=== PATIENT | male | born 1975 | race Hispanic/Latino ===

== ENCOUNTER 2022-08-04 13:50 | Emergency (ER) | payer SELFPAY ==
--- OUTSIDE RECORDS SUMMARY | 2022-08-04 13:56 | XMS REPORT | Continuity of Care Document ---
:1975 Author Organization [facility] t Address [address] [place] [address] Care Team Providers Name Role Phone PCP, PATIENT DOES NOT HAVE A Primary Care Physician Unavailgopi Ontiveros MD, Aliza Page Attending Clinician [phone] ALIZA ONTIVEROS Attending Clinician Unavailable ALIZA ONTIVEROS Admitting Clinician Unavailable Payers Payer Name Policy Type Policy Number Effective Date Expiration Date S ource Problems Condition Condition Condition Status Onset Resolution Last Treating Co mments Source Name Details Category Date Date Treatment Clinician Date No known No known Disease Unive rs active active ity of problems problems [facility] Allergies, Adverse Reactions, Alerts Allergy Allergy Status Severity Reaction(s) Onset Inactive Treating Comm ents Source Name Type Date Date Clinician NO KNOWN Drug Active Univers ALLERGIE Class ity of [facility] [place] [facility] [place] Social History Social Habit Start Date Stop Date Quantity Comments Source Exposure to 2022-05-13 2022-05-23 Not sure [facility] SARS-CoV-2 (event) 00:00:00 09:08:00 Medica l Branch Sex Ass[birth year] [facility] 00:00:00 00:00:00 Medical Branch Smoking Status Start Date Stop Date Source Tobacco smoking consumption Univ [facility] Medical unknown Branch Medications Ordered Filled Start Stop Current Ordering Indication Dosage Frequency Signature Comments Components Source Medication Medication Date Date Medication? Clinician (SIG) Name Name iopamidol 2021-07- No [id number] 100mL 100 mL, Univers (ISOVUE -23 05- Intravenou ity o f 370-500 mL) 16:00: 16:15 s, ONCE, 1 [place] injection 00 :00 dose, On Medica l 100 mL Sat Branch 05/23/22 at 1015, Routine predniSONE 2021-07- Yes [id number] 60mg Take 3 Univers 20 mg 07-23- tablets by ity of tablet 00:00: 05:59 mouth [place] 00 :00 daily for Medical 7 days. Branch valACYclovi 2021-07- Yes [id number] 1g Take 1 Univers r 1 gram 07-23- tablet by ity o f tablet 00:00: 05:59 mouth 3 [place] 00 :00 (three) Medical times Branch daily for 7 days. artificial 2021-07- Yes [id number] 1[drp] Place 1 Univers tears,hypro 07-23 Drop in ity of [place], 00:00: 05:59 [place] 0.5 % 00 :00 every 6 Medical ophthalmic (six) Branch drops hours for 5 days. ONE TABLET 2021-07 No 8 ORALLY Q 8 0-12 HOURS PRN 00:00: 00 glimepiride 2020-0 No 1mg 4 mg tablet 6-28 00:00: 00 glimepiride 2020-0 No 1mg 4 mg tablet 5-17 00:00: 00 Dose 2020-0 No Unknown 5-17 00:00: 00 metformin 2020-0 No 1mg 500 mg 4-28 tablet 00:00: 00 lisinopril 2020-0 No 1mg 20 4-21 mg-hydrochl 00:00: orothiazide 00 25 mg tablet lisinopril 0 No 1mg 20 4-21 mg-hydrochl 00:00: orothiazide 00 25 mg tablet lisinopril No 1mg 20 9-20 mg-hydrochl 00:00: orothiazide 00 25 mg tablet lisinopril No 1mg 20 9-20 mg-hydrochl 00:00: orothiazide 00 25 mg tablet Bactrim DS No 1mg 800 mg-160 5-19 mg tablet 00:00: 00 lisinopril 2017-0 No 1mg 20 5-19 mg-hydrochl 00:00: orothiazide 00 25 mg tablet furosemide No 1mg 20 mg 5-19 tablet 00:00: 00 lisinopril No 1mg 20 5-17 mg-hydrochl 00:00: orothiazide 00 25 mg tablet Elimite 5 % No 1% topical 1-11 cream 00:00: 00 lisinopril No 1mg 20 1-11 mg-hydrochl 00:00: orothiazide 00 25 mg tablet lisinopril No 1mg 20 1-04 mg-hydrochl 00:00: orothiazide 00 25 mg tablet lisinopril 2015-07 No 1mg 20 0-05 mg-hydrochl 00:00: orothiazide 00 25 mg tablet lisinopril- Yes 1{tbl} Take 1 Un adrian hydrochloro 5-13 tablet by ity of thiazide 22:25: mouth [place] (Vinicio ROACH 12 daily. Medica l ESTORETIC) Alexandre 20-25 mg per tablet Immunizations Ordered Filled Immunization Date Status Comments [facility] e Immunization Name Name Julián COVID-19 2020-12-09 Completed Vaccine 00:00:00 Moderna COVID-19 2020-10-30 Completed Vaccine 00:00:00 Td 2015-11-15 Completed [facility] 00:00:00 [facility] Vital Signs Vital Name Observation Time Observation Value Comments Source Systolic blood 2022-05-23 186 mm[Hg] ERP notified. Pt Universit y of pressure 17:00:00 instructed to [facility] BP meds Branch upon arrival home. Diastolic blood 2022-05-23 96 mm[Hg] ERP notified. Pt Universi ty of pressure 17:00:00 instructed to [facility] BP meds Branch upon arrival home. Heart rate 2022-05-23 66 /min [facility] 16:30:00 [facility] Respiratory rate 2022-05-23 14 /min [facility] 16:30:00 [facility] Oxygen saturation 2022-05-23 100 /min [facility] in Arterial blood 16:30:00 [facility] by Pulse oximetry Branch Body temperature 2022-05-23 36.78 Cat [facility] 15:09:00 [facility] Body weight 2022-05-23 113.399 kg [facility] 15:09:00 [facility] BMI 2022-05-23 268.39 kg/m2 [facility] 15:09:00 [facility] BP Systolic 2022-04-15 161 mm[Hg] 13:16:00 BP Diastolic 2022-04-15 99 mm[Hg] 13:16:00 Weight Measured 2022-04-15 268.20 pounds 13:16:00 Height Measured 2022-04-15 65.00 inches 13:16:00 Body Temperature 2022-04-15 97.80 degrees 13:16:00 Heart Rate 2022-04-15 78.00 /min 13:16:00 Respiratory Rate 2022-04-15 24.00 /min 13:16:00 BP Systolic 2020-12-30 123 mm[Hg] 11:13:00 BP Diastolic 2020-12-30 69 mm[Hg] 11:13:00 Weight Measured 2020-12-30 263.67 pounds 11:13:00 Height Measured 2020-12-30 65.00 inches 11:13:00 Body Temperature 2020-12-30 98.40 degrees 11:13:00 Heart Rate 2020-12-30 63.00 /min 11:13:00 Respiratory Rate 2020-12-30 11:13:00 BP Systolic 2020-12-27 131 mm[Hg] 14:01:00 BP Diastolic 2020-12-27 75 mm[Hg] 14:01:00 Weight Measured 2020-12-27 266.40 pounds 14:01:00 Height Measured 2020-12-27 65.00 inches 14:01:00 Body Temperature 2020-12-27 98.20 degrees 14:01:00 Heart Rate 2020-12-27 58.00 /min 14:01:00 Respiratory Rate 2020-12-27 23.00 /min 14:01:00 BP Systolic 2020-11-18 121 mm[Hg] 08:41:00 BP Diastolic 2020-11-18 72 mm[Hg] 08:41:00 Weight Measured 2020-11-18 262.60 pounds 08:41:00 Height Measured 2020-11-18 65.00 inches 08:41:00 Body Temperature 2020-11-18 97.90 degrees 08:41:00 Heart Rate 2020-11-18 97.00 /min 08:41:00 Respiratory Rate 2020-11-18 08:41:00 BP Systolic 2020-10-30 139 mm[Hg] 08:38:00 BP Diastolic 2020-10-30 76 mm[Hg] 08:38:00 Weight Measured 2020-10-30 266.20 pounds 08:38:00 Height Measured 2020-10-30 65.00 inches 08:38:00 Body Temperature 2020-10-30 98.10 degrees 08:38:00 Heart Rate 2020-10-30 59.00 /min 08:38:00 Respiratory Rate 2020-10-30 17.00 /min 08:38:00 BP Systolic 2020-10-23 180 mm[Hg] 17:00:00 BP Diastolic 2020-10-23 99 mm[Hg] 17:00:00 Weight Measured 2020-10-23 265.00 pounds 17:00:00 Height Measured 2020-10-23 65.00 inches 17:00:00 Body Temperature 2020-10-23 98.80 degrees 17:00:00 Heart Rate 2020-10-23 69.00 /min 17:00:00 Respiratory Rate 2020-10-23 16.00 /min 17:00:00 BP Systolic 2018-07-22 119 mm[Hg] 09:48:00 BP Diastolic 2018-07-22 81 mm[Hg] 09:48:00 Weight Measured 2018-07-22 245.60 pounds 09:48:00 Height Measured 2018-07-22 65.00 inches 09:48:00 Body Temperature 2018-07-22 97.90 degrees 09:48:00 Heart Rate 2018-07-22 63.00 /min 09:48:00 Respiratory Rate 2018-07-22 18.00 /min 09:48:00 BP Systolic 2017-03-24 156 mm[Hg] 11:03:00 BP Diastolic 2017-03-24 94 mm[Hg] 11:03:00 Weight Measured 2017-03-24 249.40 pounds 11:03:00 Height Measured 2017-03-24 65.00 inches 11:03:00 Body Temperature 2017-03-24 98.70 degrees 11:03:00 Heart Rate 2017-03-24 59.00 /min 11:03:00 Respiratory Rate 2017-03-24 16.00 /min 11:03:00 BP Systolic 2016-11-20 127 mm[Hg] 09:37:00 BP Diastolic 2016-11-20 83 mm[Hg] 09:37:00 Weight Measured 2016-11-20 276.40 pounds 09:37:00 Height Measured 2016-11-20 60.00 inches 09:37:00 Body Temperature 2016-11-20 99.40 degrees 09:37:00 Heart Rate 2016-11-20 80.00 /min 09:37:00 Respiratory Rate 2016-11-20 18.00 /min 09:37:00 BP Systolic 2016-07-15 121 mm[Hg] 10:00:00 BP Diastolic 2016-07-15 84 mm[Hg] 10:00:00 Weight Measured 2016-07-15 272.60 pounds 10:00:00 Height Measured 2016-07-15 10:00:00 Body Temperature 2016-07-15 98.00 degrees 10:00:00 Heart Rate 2016-07-15 58.00 /min 10:00:00 Respiratory Rate 2016-07-15 18.00 /min 10:00:00 Procedures Procedure Date / Time Performed Performing Clinician [facility] e CT ANGIOGRAM HEAD 2022-05-23 16:01:40 [facility] CT ANGIOGRAM NECK 2022-05-23 16:01:40 [facility]on [facility] CT HEAD WO CONTRAST 2022-05-23 15:51:00 Aliza Ontiveros [facility] COMP. METABOLIC PANEL 2022-05-23 15:20:00 Aliza Ontiveros [facility] ([id number]) [facility] CBC WITH DIFF 2022-05-23 15:20:00 Aliza Ontiveros [facility] NOTICE OF PRIVACY 2022-05-23 15:00:19 Doctor Unassigned, No Univ [facility] PRACTICES Name [facility] CONSENT/REFUSAL FOR 2022-05-23 14:59:37 Doctor Unassigned, No [facility] DIAGNOSIS AND Name Medical Branch TREATMENT [id number] Ecg Routine Ecg 2016-04-08 00:00:00 W/least 12 Lds W/i r Plan of Care Planned Activity Planned Date Details Comments Source Goal Plan of Care Note [code = 79605-3] Goal Plan of Care Note [code = 96909-3] Goal Plan of Care Note [code = 77973-0] Goal Plan of Care Note [code = 71563-6] Goal Plan of Care Note [code = 26331-3] Goal Plan of Care Note [code = 90223-2] Goal Plan of Care Note [code = 28527-9] Goal Plan of Care Note [code = 93900-5] Goal Plan of Care Note [code = 77635-2] Goal Plan of Care Note [code = 69029-6] Goal Plan of Care Note [code = 75251-3] Goal Plan of Care Note [code = 50504-6] Goal Plan of Care Note [code = 53603-3] Goal Plan of Care Note [code = 90586-3] Goal Plan of Care Note [code = 48058-7] Goal Plan of Care Note [code = 00658-3] Goal Plan of Care Note [code = 04079-4] Goal Plan of Care Note [code = 38897-0] Goal Plan of Care Note [code = 94095-3] Goal Plan of Care Note [code = 81773-2] Goal Plan of Care Note [code = 15520-6] Goal Plan of Care Note [code = 05223-0] Goal Plan of Care Note [code = 52245-5] Encounters Start End Encounter Admission Attending Care Care Encounter Source Date/Time Date/Time Type Type Clinicians Facility Department ID 2022-05-25 2022-05-25 Outpatient [facility] [id number] Deangelo 14:05:51 14:05:51 112[address] Neel 2022-05-23 2022-05-23 Emergency [facility] [id number] Univers 09:11:00 11:09:00 , Aliza ESPINAL [id number] i ty of Kaylee TOMPKINS [id number] [facility] [id number] [facility] 084 Branch 2022-05-23 2022-05-23 Emergency [facility] [id number] Univers 09:11:00 11:09:00 , ALIZA red [facility] 2022-04-15 2022-04-15 Outpatient SFA [facility] [id number] 022 Deangelo 13:16:50 13:16:50 1012 F Neel 2022-04-15 2022-04-15 Outpatient [id number] 00:00:00 00:00:00 Visit [id number] Results Test Description Test Time Test Comments Results Result Comments Source COMP. METABOLIC PANEL (85685) 2022-05-23 15:49:01 Test Item Value Reference Range Interpretation Comme nts NA (test code = 2422912260) 136 mmol/L 135-145 K (test code = 4908085310) 4.3 mmol/L 3.5-5.0 CL (test code = 1166649504) 101 mmol/L 98-108 CO2 TOTAL (test code = 0620605935) 26 mmol/L 23-31 AGAP (test code = 1253553483) 2-16 BUN (test code = 9597551183) 15 mg/dL 7-23 GLUCOSE (test code = 8966522416) 180 mg/dL 70-110 H CREATININE (test code = 1.05 mg/dL 0.60-1.25 0983827860) TOTAL BILI (test code = 0.9 mg/dL 0.1-1.0 9937390088) CALCIUM (test code = 6158943269) 9.7 mg/dL 8.6-10.6 T PROTEIN (test code = 6889496380) 7.6 g/dL 6.3-8.2 ALBUMIN (test code = 2360011539) 4.7 g/dL 3.5-5.0 ALK PHOS (test code = 1966048091) 79 U/L 34-122 ALTv (test code = 1742-6) 55 U/L 5-50 H AST(SGOT) (test code = 4182475549) 42 U/L 13-40 H eGFR (test code = 9889075785) mL/min/1.73m2 JONI (test code = JNOI) Association of Glomerular Filtration Rate (GFR) and Staging of Kidney Disease* + +-------- + ------+| GFR (mL/min/1.73 m2) ?| With Kidney Damage ?| ?Without Kidney Damage+ +-- + +| ?>90 ?| ?Stage one ?| ? Normal ?+ +------- + -------+| ?60-89 ?| ?Stage two ?| ? Decreased GFR ? + +-------- + ------+| ?30-59 ?| ?Stage three ?| ? Stage three ? + +-------- + ------+| ?15-29 ?| ?Stage four ? | ? Stage four ?+ +------- + -------+| ?<15 (or dialysis) ? ?| ?Stage five ? | ? Stage five ?+ +------- + -------+ *Each stage assumes the associated GFR level has been in effect for at least three months. ?Stages 1 to 5, with or without kidney disease, indicate chronic kidney disease. Notes: Determination of stages one and two (with eGFR >59mL/min/1.73 m2) requires estimation of kidney damage for at least three months as defined by structural or functional abnormalities of the kidney, manifested by either:Pathological abnormalities or Markers of kidney damage (including abnormalities in the composition of the blood or urine or abnormalities in imaging tests). Lab Interpretation (test code = Abnormal 33439-7) [facility] WITH [id number] 15:33:04 Test Item Value Reference Range Interpretation Comments WBC (test code = See_Comment [Automated 9065-2) message] The sy stem which generated this result transmitted reference range : 4.20 - 10.70 10*3/?L. The reference range was not used to interpret this result as normal/abnormal . RBC (test code = See_Comment [Automated 695-8) message] The sy stem which generated this result transmitted reference range : 4.26 - 5.52 10*6/?L. The reference range was not used to interpret this result as normal/abnormal . HGB (test code = 16.4 g/dL 12.2-16.4 718-7) HCT (test code = 46.2 % 38.4-49.3 4544-3) MCV (test code = 85.9 fL 81.7-95.6 787-2) MCH (test code = 30.5 pg 26.1-32.7 785-6) MCHC (test code = 35.5 g/dL 31.2-35.0 H 786-4) RDW-SD (test code = 40.4 fL 38.5-51.6 04304-4) RDW-CV (test code = 13.2 % 12.1-15.4 788-0) PLT (test code = See_Comment [Automated 777-3) message] The sy stem which generated this result transmitted reference range : 150 - 328 10*3/ ?L. The reference r ave was not used to interpret this result as normal/abnormal . MPV (test code = 11.2 fL 9.8-13.0 33600-3) NRBC/100 WBC (test See_Comment [Automat ed code = 3053815617) message] The system which generated this result transmitted reference range : 0.0 - 10.0 /100 WBCs. The refer ence range was not u sed to interpret th is result as normal/abnormal . NRBC x10^3 (test code See_Comment [Auto mated = 6574021227) message] The s ystem which generated this result transmitted reference range : 10*3/?L. The reference range was not used to interpret this result as normal/abnormal . GRAN MAT (NEUT) % 62.5 % (test code = 770-8) IMM GRAN % (test code 0.50 % = 7021172721) LYMPH % (test code = 23.8 % 736-9) MONO % (test code = 7.6 % 5905-5) EOS % (test code = 4.9 % 713-8) BASO % (test code = 0.7 % 706-2) GRAN MAT x10^3(ANC) 6.05 10*3/uL 1.99-6.95 (test code = 9481498594) IMM GRAN x10^3 (test 0.05 10*3/uL 0.00-0.06 code = 4028986679) LYMPH x10^3 (test code 2.30 10*3/uL 1.09-3.23 = 731-0) MONO x10^3 (test code 0.74 10*3/uL 0.36-1.02 = 742-7) EOS x10^3 (test code = 0.47 10*3/uL 0.06-0.53 711-2) BASO x10^3 (test code 0.07 10*3/uL 0.01-0.09 = 704-7) Lab Interpretation Abnormal (test code = 25327-2) [facility] [id number] 00:00:00 Test Item Value Reference Range Interpretation Comments HEMOGLOBIN A1c (test code = 01614) 7.0 % HEMOGLOBIN [id number] 00:00:00 Test Item Value Reference Range Interpretation Comments HEMOGLOBIN A1c (test code = 33984) 7.0 % HEMOGLOBIN [id number] 00:00:00 Test Item Value Reference Range Interpretation Comments HEMOGLOBIN A1c (test code = 25646) 7.0 % COMPREHENSIVE METABOLIC [id number] 00:00:00 Test Item Value Reference Range Interpretation Comments GLUCOSE (test code = 2217) 268 MG/DL BUN (test code = 2208) 27 MG/DL CREATININE (test code = 2214) 1.23 MG/DL eGFR AMER. (test code 82 ML/MIN/1.73 = 20471) eGFR NON- AMER. (test 71 ML/MIN/1.73 code = 10934) CALC BUN/CREAT (test code = 22 RATIO 2235) SODIUM (test code = 2231) 142 MEQ/L POTASSIUM (test code = 2228) 4.6 MEQ/L CHLORIDE (test code = 2215) 102 MEQ/L CARBON DIOXIDE (test code = 26 MEQ/L 2205) CALCIUM (test code = 2209) 9.8 MG/DL PROTEIN, TOTAL (test code = 7.3 G/DL 2228) ALBUMIN (test code = 2201) 4.4 G/DL CALC GLOBULIN (test code = 2.9 G/DL 0) CALC A/G RATIO (test code = 1.5 RATIO 2234) BILIRUBIN, TOTAL (test code = 0.6 MG/DL 2206) ALKALINE PHOSPHATASE (test 78 U/L code = 2204) AST (test code = 2218) 36 U/L ALT (test code = 2219) 45 U/L COMPREHENSIVE METABOLIC [id number] 00:00:00 Test Item Value Reference Range Interpretation Comments GLUCOSE (test code = 2217) 268 MG/DL BUN (test code = 2208) 27 MG/DL CREATININE (test code = 2214) 1.23 MG/DL eGFR AMER. (test code 82 ML/MIN/1.73 = 56553) eGFR NON- AMER. (test 71 ML/MIN/1.73 code = 21693) CALC BUN/CREAT (test code = 22 RATIO 2235) SODIUM (test code = 2231) 142 MEQ/L POTASSIUM (test code = 2228) 4.6 MEQ/L CHLORIDE (test code = 2215) 102 MEQ/L CARBON DIOXIDE (test code = 26 MEQ/L 2205) CALCIUM (test code = 2209) 9.8 MG/DL PROTEIN, TOTAL (test code = 7.3 G/DL 2228) ALBUMIN (test code = 2201) 4.4 G/DL CALC GLOBULIN (test code = 2.9 G/DL 224) CALC A/G RATIO (test code = 1.5 RATIO 2233) BILIRUBIN, TOTAL (test code = 0.6 MG/DL 2206) ALKALINE PHOSPHATASE (test 78 U/L code = 2204) AST (test code = 2218) 36 U/L ALT (test code = 2219) 45 U/L COMPREHENSIVE METABOLIC [id number] 00:00:00 Test Item Value Reference Range Interpretation Comments GLUCOSE (test code = 2217) 208 MG/DL BUN (test code = 2208) 24 MG/DL CREATININE (test code = 2214) 1.13 MG/DL eGFR AMER. (test code 91 ML/MIN/1.73 = 24810) eGFR NON- AMER. (test 79 ML/MIN/1.73 code = 91157) CALC BUN/CREAT (test code = 21 RATIO 2235) SODIUM (test code = 2231) 137 MEQ/L POTASSIUM (test code = 2228) 4.1 MEQ/L CHLORIDE (test code = 2215) 101 MEQ/L CARBON DIOXIDE (test code = 23 MEQ/L 220) CALCIUM (test code = 2209) 9.7 MG/DL PROTEIN, TOTAL (test code = 7.2 G/DL 2228) ALBUMIN (test code = 2201) 4.3 G/DL CALC GLOBULIN (test code = 2.9 G/DL 2240) CALC A/G RATIO (test code = 1.5 RATIO 2234) BILIRUBIN, TOTAL (test code = 0.6 MG/DL 220) ALKALINE PHOSPHATASE (test 83 U/L code = 2204) AST (test code = 2218) 29 U/L ALT (test code = 2219) 44 U/L COMPREHENSIVE METABOLIC [id number] 00:00:00 Test Item Value Reference Range Interpretation Comments GLUCOSE (test code = 2217) 208 MG/DL BUN (test code = 2208) 24 MG/DL CREATININE (test code = 2214) 1.13 MG/DL eGFR AMER. (test code 91 ML/MIN/1.73 = 42289) eGFR NON- AMER. (test 79 ML/MIN/1.73 code = 10928) CALC BUN/CREAT (test code = 21 RATIO 2235) SODIUM (test code = 2231) 137 MEQ/L POTASSIUM (test code = 2228) 4.1 MEQ/L CHLORIDE (test code = 2215) 101 MEQ/L CARBON DIOXIDE (test code = 23 MEQ/L 2206) CALCIUM (test code = 2209) 9.7 MG/DL PROTEIN, TOTAL (test code = 7.2 G/DL 2228) ALBUMIN (test code = 2201) 4.3 G/DL CALC GLOBULIN (test code = 2.9 G/DL 2240) CALC A/G RATIO (test code = 1.5 RATIO 2234) BILIRUBIN, TOTAL (test code = 0.6 MG/DL 2206) ALKALINE PHOSPHATASE (test 83 U/L code = 2204) AST (test code = 2218) 29 U/L ALT (test code = 2219) 44 U/L LIPID [id number] 00:00:00 Test Item Value Reference Range Interpretation Comments CHOLESTEROL (test code = 2210) 218 MG/DL TRIGLYCERIDES (test code = 2232) 200 MG/DL HDL CHOLESTEROL (test code = 2220) 42 MG/DL CALC LDL CHOL (test code = 2237) 142 MG/DL RISK RATIO LDL/HDL (test code = 3.38 RATIO 2238) LIPID [id number] 00:00:00 Test Item Value Reference Range Interpretation Comments CHOLESTEROL (test code = 2210) 218 MG/DL TRIGLYCERIDES (test code = 2232) 200 MG/DL HDL CHOLESTEROL (test code = 2220) 42 MG/DL CALC LDL CHOL (test code = 2237) 142 MG/DL RISK RATIO LDL/HDL (test code = 3.38 RATIO 2238) HEMOGLOBIN [id number] 00:00:00 Test Item Value Reference Range Interpretation Comments HEMOGLOBIN A1c (test code = 63203) 9.0 % HEMOGLOBIN [id number] 00:00:00 Test Item Value Reference Range Interpretation Comments HEMOGLOBIN A1c (test code = 31172) 9.0 % HEMOGLOBIN [id number] 00:00:00 Test Item Value Reference Range Interpretation Comments HEMOGLOBIN A1c (test code = 39286) 9.0 % HEMOGLOBIN [id number] 00:00:00 Test Item Value Reference Range Interpretation Comments HEMOGLOBIN A1c (test code = 24016) 5.9 % HEMOGLOBIN [id number] 00:00:00 Test Item Value Reference Range Interpretation Comments HEMOGLOBIN A1c (test code = 09163) 5.9 % HEMOGLOBIN [id number] 00:00:00 Test Item Value Reference Range Interpretation Comments HEMOGLOBIN A1c (test code = 79705) 5.9 % CBC W/AUTO [id number] 00:00:00 Test Item Value Reference Range Interpretation Comments WBC (test code = 1001) 12.4 K/UL RBC (test code = 1002) 4.72 M/UL HEMOGLOBIN (test code = 1003) 14.0 G/DL HEMATOCRIT (test code = 1004) 40.8 % MCV (test code = 1005) 86.4 fL MCH (test code = 1006) 29.7 PG MCHC (test code = 1007) 34.3 G/DL RDW (test code = 1038) 12.9 % NEUTROPHILS (test code = 1008) 73.7 % LYMPHOCYTES (test code = 1010) 15.3 % MONOCYTES (test code = 1011) 8.6 % EOSINOPHILS (test code = 1012) 2.0 % BASOPHILS (test code = 1013) 0.4 % PLATELET COUNT (test code = 1015) 245 K/UL CBC W/AUTO [id number] 00:00:00 Test Item Value Reference Range Interpretation Comments WBC (test code = 1001) 12.4 K/UL RBC (test code = 1002) 4.72 M/UL HEMOGLOBIN (test code = 1003) 14.0 G/DL HEMATOCRIT (test code = 1004) 40.8 % MCV (test code = 1005) 86.4 fL MCH (test code = 1006) 29.7 PG MCHC (test code = 1007) 34.3 G/DL RDW (test code = 1038) 12.9 % NEUTROPHILS (test code = 1008) 73.7 % LYMPHOCYTES (test code = 1010) 15.3 % MONOCYTES (test code = 1011) 8.6 % EOSINOPHILS (test code = 1012) 2.0 % BASOPHILS (test code = 1013) 0.4 % PLATELET COUNT (test code = 1015) 245 K/UL CBC W/AUTO [id number] 00:00:00 Test Item Value Reference Range Interpretation Comments WBC (test code = 1001) 12.4 K/UL RBC (test code = 1002) 4.72 M/UL HEMOGLOBIN (test code = 1003) 14.0 G/DL HEMATOCRIT (test code = 1004) 40.8 % MCV (test code = 1005) 86.4 fL MCH (test code = 1006) 29.7 PG MCHC (test code = 1007) 34.3 G/DL RDW (test code = 1038) 12.9 % NEUTROPHILS (test code = 1008) 73.7 % LYMPHOCYTES (test code = 1010) 15.3 % MONOCYTES (test code = 1011) 8.6 % EOSINOPHILS (test code = 1012) 2.0 % BASOPHILS (test code = 1013) 0.4 % PLATELET COUNT (test code = 1015) 245 K/UL COMPREHENSIVE METABOLIC [id number] 00:00:00 Test Item Value Reference Range Interpretation Comments GLUCOSE (test code = 2217) 114 MG/DL BUN (test code = 2208) 18 MG/DL CREATININE (test code = 2214) 1.29 MG/DL eGFR AMER. (test code 80 ML/MIN/1.73 = 17777) eGFR NON- AMER. (test 69 ML/MIN/1.73 code = 83902) CALC BUN/CREAT (test code = 14 RATIO 2235) SODIUM (test code = 2231) 138 MEQ/L POTASSIUM (test code = 2228) 4.9 MEQ/L CHLORIDE (test code = 2215) 100 MEQ/L CARBON DIOXIDE (test code = 25 MEQ/L 2205) CALCIUM (test code = 2209) 9.6 MG/DL PROTEIN, TOTAL (test code = 7.3 G/DL 222) ALBUMIN (test code = 2201) 4.3 G/DL CALC GLOBULIN (test code = 3.0 G/DL 2240) CALC A/G RATIO (test code = 1.4 RATIO 2234) BILIRUBIN, TOTAL (test code = 0.5 MG/DL 2206) ALKALINE PHOSPHATASE (test 63 U/L code = 2204) AST (test code = 2218) 22 U/L ALT (test code = 2219) 33 U/L COMPREHENSIVE METABOLIC [id number] 00:00:00 Test Item Value Reference Range Interpretation Comments GLUCOSE (test code = 2217) 114 MG/DL BUN (test code = 2208) 18 MG/DL CREATININE (test code = 2214) 1.29 MG/DL eGFR AMER. (test code 80 ML/MIN/1.73 = 95137) eGFR NON- AMER. (test 69 ML/MIN/1.73 code = 27394) CALC BUN/CREAT (test code = 14 RATIO 2235) SODIUM (test code = 2231) 138 MEQ/L POTASSIUM (test code = 2228) 4.9 MEQ/L CHLORIDE (test code = 2215) 100 MEQ/L CARBON DIOXIDE (test code = 25 MEQ/L 2205) CALCIUM (test code = 2209) 9.6 MG/DL PROTEIN, TOTAL (test code = 7.3 G/DL 2228) ALBUMIN (test code = 2201) 4.3 G/DL CALC GLOBULIN (test code = 3.0 G/DL 2240) CALC A/G RATIO (test code = 1.4 RATIO 2234) BILIRUBIN, TOTAL (test code = 0.5 MG/DL 7) ALKALINE PHOSPHATASE (test 63 U/L code = 2204) AST (test code = 2218) 22 U/L ALT (test code = 2219) 33 U/L COMPREHENSIVE METABOLIC [id number] 00:00:00 Test Item Value Reference Range Interpretation Comments GLUCOSE (test code = 2217) 106 MG/DL BUN (test code = 2208) 17 MG/DL CREATININE (test code = 2214) 1.18 MG/DL eGFR AMER. (test code 90 ML/MIN/1.73 = 60594) eGFR NON- AMER. (test 77 ML/MIN/1.73 code = 94282) CALC BUN/CREAT (test code = 14 RATIO 2235) SODIUM (test code = 2231) 142 MEQ/L POTASSIUM (test code = 2228) 4.8 MEQ/L CHLORIDE (test code = 2215) 101 MEQ/L CARBON DIOXIDE (test code = 27 MEQ/L 2206) CALCIUM (test code = 2209) 9.3 MG/DL PROTEIN, TOTAL (test code = 7.5 G/DL 2228) ALBUMIN (test code = 2201) 4.6 G/DL CALC GLOBULIN (test code = 2.9 G/DL 2240) CALC A/G RATIO (test code = 1.6 RATIO 2234) BILIRUBIN, TOTAL (test code = 0.5 MG/DL 2206) ALKALINE PHOSPHATASE (test 82 U/L code = 220) AST (test code = 2218) 35 U/L ALT (test code = 2219) 50 U/L COMPREHENSIVE METABOLIC [id number] 00:00:00 Test Item Value Reference Range Interpretation Comments GLUCOSE (test code = 2217) 106 MG/DL BUN (test code = 2208) 17 MG/DL CREATININE (test code = 2214) 1.18 MG/DL eGFR AMER. (test code 90 ML/MIN/1.73 = 46102) eGFR NON- AMER. (test 77 ML/MIN/1.73 code = 81744) CALC BUN/CREAT (test code = 14 RATIO 2235) SODIUM (test code = 2231) 142 MEQ/L POTASSIUM (test code = 2228) 4.8 MEQ/L CHLORIDE (test code = 2215) 101 MEQ/L CARBON DIOXIDE (test code = 27 MEQ/L 2206) CALCIUM (test code = 2209) 9.3 MG/DL PROTEIN, TOTAL (test code = 7.5 G/DL 9) ALBUMIN (test code = 2201) 4.6 G/DL CALC GLOBULIN (test code = 2.9 G/DL 2240) CALC A/G RATIO (test code = 1.6 RATIO 2234) BILIRUBIN, TOTAL (test code = 0.5 MG/DL 2206) ALKALINE PHOSPHATASE (test 82 U/L code = 2204) AST (test code = 2218) 35 U/L ALT (test code = 2219) 50 U/L"
[2022-08-04 15:15] LABS: Absolute Lymphocytes (CBC) 2.4 K/uL (0.7-4.9); Hematocrit 44.4 % (39.6-49.0); MCV 90.2 fL (80-100); MPV 9.6 fL (7.6-11.3); RBC Red Blood Cell Count 4.92 M/uL (4.33-5.43)
[2022-08-04] MEDS ORDERED: NA CHLORIDE 0.9% 1,000 ML ONE (15:28)
[2022-08-04 15:38] LABS: Albumin 3.7 g/dL (3.4-5.0); Bilirubin Direct 0.2 mg/dL (0-0.2); Bilirubin Total 0.7 mg/dL (0.2-1.0); Potassium 4.2 mmol/L (3.5-5.1); Protein, Total 7.1 g/dL (6.4-8.2); Troponin High Sensitivity 7.5 pg/mL (<58.9)
[2022-08-04] MEDS ORDERED: INSULIN -REGULAR HUMAN 50 UNIT/0.5 ML ML ONE (16:01)
--- NOTE | 2022-08-04 16:43 | ER ---
Nurse's Notes [facility] Name: Geremias Ennis Age: 46 yrs Sex: Male : 1975 Arrival Date: 08/04/2022 Time: 13:57 Bed 11 Private MD: Diagnosis: Type 2 diabetes mellitus with hyperglycemia Presentation: 08/04 14:25 Chief complaint: Chief complaint: Chief complaint: Patient states: sent here by for aa5 elevated A1C 15.1 by [facility] in [place], [place]. Pt reports increased thirst and increased urination. Pt reports he was prescribed metformin and atorvastatin yesterday. 14:30 Coronavirus screen: At this time, the client does not indicate any symptoms associated aa5 with coronavirus-19. Ebola Screen: Patient denies travel to an Ebola-affected area in the 21 days before illness onset. Initial Sepsis Screen: Does the patient meet any 2 criteria? No. Patient's initial sepsis screen is negative. Does the patient have a suspected source of infection? No. Patient's initial sepsis screen is negative. Risk Assessment: Do you want to hurt yourself or someone else? Patient reports no desire to harm self or others. Onset of symptoms was July 2022. 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 - Social history:: Smoking status: Patient reports the use of cigarette tobacco products, denies chronic smoking, but will smoke occasionally. Screenin:40 [facility] ED Fall Risk Assessment (Adult) History of falling in the last 3 months, mb9 including since admission No falls in past 3 months (0 pts) Confusion or Disorientation No (0 pts) Intoxicated or Sedated No (0 pts) Impaired Gait No (0 pts) Mobility Assist Device Used No (0 pt) Altered Elimination No (0 pt) Score/Fall Risk Level 0 - 2 = Low Risk Oriented to surroundings, Maintained a safe environment, Educated pt \T\ family on fall prevention, incl call for assistance when getting out of bed. Abuse screen: Denies threats or abuse. Nutritional screening: No deficits noted. Tuberculosis screening: No symptoms or risk factors identified. Assessment: 15:00 General: Appears in no apparent distress. Behavior is cooperative. Pain: Denies pain. mb9 Neuro: Level of Consciousness is awake, alert, obeys commands, Oriented to person, place, time, situation, Appropriate for age. Cardiovascular: Capillary refill < 3 seconds is brisk Patient's skin is warm and dry. Rhythm is regular. Respiratory: Airway is patent Respiratory effort is even, unlabored, Respiratory pattern is regular, symmetrical. GI: Abdomen is round non-distended, Bowel sounds present X 4 quads. Abd is soft and non tender. : Reports urinary frequency. EENT: No signs and/or symptoms were reported regarding the EENT system. Derm: Skin is pink, warm \T\ dry. Musculoskeletal: Range of motion: intact in all extremities. 16:30 Reassessment: No changes from previously documented assessment. Patient and/or family mb9 updated on plan of care and expected duration. Pain level reassessed. Patient is alert, oriented x 3, equal unlabored respirations, skin warm/dry/pink. Vital Signs: 14:30 BP 158 / 80; Pulse 67; Resp 18 S; Temp 97.5(TE); Pulse Ox 100% on R/A; Weight 108.86 kg aa5 (R); Height 5 ft. 6 in. (167.64 cm) (R); 16:04 BP 127 / 72; Pulse 62; Resp 17; Pulse Ox 100% ; mb9 14:30 Body Mass Index 38.74 (108.86 kg, 167.64 cm) aa5 ED Course: 13:57 Patient arrived in ED. am2 14:12 [facility]ccain FNP [facility] 7 14:12 Venkata Baumann MD is Attending Physician. 7 14:23 Arm band placed on. aa5 14:36 Triage completed. aa5 14:36 Placed in gown. Bed in low position. Call light in reach. Side rails up X 1. Client mb9 placed on continuous cardiac and pulse oximetry monitoring. NIBP monitoring applied. 14:36 EKG done, by ED staff, reviewed by Venkata Baumann MD. Inserted saline lock: 20 gauge in mb9 left antecubital area, using aseptic technique. 14:37 Iveth Overton, RN is Primary Nurse. 9 16:43 No provider procedures requiring assistance completed. IV discontinued, intact, mb9 bleeding controlled, No redness/swelling at site. Pressure dressing applied. Administered Medications: 15:26 Drug: NS 0.9% 1000 ml Route: IV; Rate: 1 bolus; Site: left antecubital; 9 16:52 Follow up: Response: No adverse reaction; IV Status: Completed infusion 9 16:03 Drug: Insulin Regular Human 5 units {Co-Signature: jack5 (Estela Harris RN).} Route: mb9 IVP; Site: left antecubital; 16:24 Follow up: Response: No adverse reaction 9 Medication: 16:43 VIS not applicable for this client. 9 Point of Care Testing: Blood Glucose: 14:27 Blood Glucose: 388 mg/dL; aa5 Ranges: Outcome: 16:43 Discharge ordered by . [facility] 16:51 Discharged to home ambulatory. mb9 16:51 Condition: stable 16:51 Discharge instructions given to patient, Instructed on discharge instructions, follow up and referral plans. Demonstrated understanding of instructions, follow-up care. 17:07 Patient left the ED. 9 Signatures: Estela aHrris RN RN aa5 Kori Velazco am2 Naima Mccain, PLANT BREEDER SCIENTIST PLANT BREEDER SCIENTIST 7 Iveth Overton RN RN mb9 Estela Harris RN aa5 Corrections: (The following items were deleted from the chart) 14:29 14:25 Chief complaint: aa5 aa5 14:36 14:25 Chief complaint: Chief complaint: aa5 aa5 14:37 14:30 BP 158 / 80; Pulse 67bpm; Resp 18bpm; Spontaneous; Pulse Ox 100% RA; Temp 97.5F aa5 Temporal; aa5 14:38 14:25 Chief complaint: Patient states: sent here by for elevated A1C by [facility] aa5 in [place], [place]. Pt reports increased thirst and increased urination. Pt reports he was prescribed metformin and atorvastatin yesterday. Chief complaint: Patient states: sent here by for elevated A1C by [facility] in [place], [place]. Pt reports increased thirst and increased urination. Pt reports he was prescribed metformin and atorvastatin yesterday. Chief complaint: Patient states: sent here by for elevated A1C by [facility] in [place]. Pt reports increased thirst and increased urination. Pt reports he was prescribed metformin and atorvastatin yesterday. aa5
--- NOTE | 2022-08-04 16:43 | EDPHYS ---
Physician Documentation [facility] Name: Geremias Ennis Age: 46 yrs Sex: Male : 1975 Arrival Date: 08/04/2022 Time: 13:57 Bed 11 Private MD: ED Physician Venkata Baumann HPI: 08/04 14:20 This 46 yrs old Male presents to ER via Ambulatory with complaints of Abnormal jh7 Lab Results - HBA1C 15.1. 14:20 Onset: The symptoms/episode began/occurred 1 week(s) ago. Associated signs and jh7 symptoms: The patient has no apparent associated signs or symptoms. Patient sent by [facility] for hemoglobin A1c of 15.1. The patient states that he was started on metformin yesterday was told to go to the ER due to his abnormal lab result. Denies any symptoms at this time.. 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 - Social history:: Smoking status: Patient reports the use of cigarette tobacco products, denies chronic smoking, but will smoke occasionally. ROS: 14:20 Constitutional: Negative for fever, chills, and weight loss, Eyes: Negative for injury, jh7 pain, redness, and discharge, Cardiovascular: Negative for chest pain, palpitations, and edema, Respiratory: Negative for shortness of breath, cough, wheezing, and pleuritic chest pain, Abdomen/GI: Negative for abdominal pain, nausea, vomiting, diarrhea, and constipation, MS/Extremity: Negative for injury and deformity, Skin: Negative for injury, rash, and discoloration, Neuro: Negative for headache, weakness, numbness, tingling, and seizure. Exam: 14:20 Constitutional: This is a well developed, well nourished patient who is awake, alert, jh7 and in no acute distress. Head/Face: Normocephalic, atraumatic. Cardiovascular: Regular rate and rhythm with a normal S1 and S2. No gallops, murmurs, or rubs. Normal PMI, no JVD. No pulse deficits. Respiratory: Lungs have equal breath sounds bilaterally, clear to auscultation and percussion. No rales, rhonchi or wheezes noted. No increased work of breathing, no retractions or nasal flaring. Abdomen/GI: Soft, non-tender, with normal bowel sounds. No distension or tympany. No guarding or rebound. No evidence of tenderness throughout. Back: No spinal tenderness. No costovertebral tenderness. Full range of motion. Skin: Warm, dry with normal turgor. Normal color with no rashes, no lesions, and no evidence of cellulitis. MS/ Extremity: Pulses equal, no cyanosis. Neurovascular intact. Full, normal range of motion. Neuro: Awake and alert, GCS 15, oriented to person, place, time, and situation. Motor strength 5/5 in all extremities. Sensory grossly intact. Normal gait. Vital Signs: 14:30 BP 158 / 80; Pulse 67; Resp 18 S; Temp 97.5(TE); Pulse Ox 100% on R/A; Weight 108.86 kg aa5 (R); Height 5 ft. 6 in. (167.64 cm) (R); 16:04 BP 127 / 72; Pulse 62; Resp 17; Pulse Ox 100% ; mb9 14:30 Body Mass Index 38.74 (108.86 kg, 167.64 cm) aa5 MDM: 14:12 Patient medically screened. [facility] 16:45 Differential diagnosis: Hyperglycemia. Data reviewed: vital signs, nurses notes, lab [facility] test result(s), EKG. I considered the following discharge prescriptions or medication management in the emergency department Medications were administered in the Emergency Department. See MAR. Independent interpretation of the following test(s) in the Emergency Department EKG: See my EKG interpretation above. Care significantly affected by the following chronic conditions: Diabetes. Counseling: I had a detailed discussion with the patient and/or guardian regarding: the historical points, exam findings, and any diagnostic results supporting the discharge/admit diagnosis, to return to the emergency department if symptoms worsen or persist or if there are any questions or concerns that arise at home. Special discussion: Advised the patient to follow-up with his PCP. He was started on metformin yesterday, but will likely need to be started on insulin as well. Discussed monitoring blood glucose levels at home and taking medication as prescribed.. 08/04 14:34 Order name: Basic Metabolic Panel; Complete Time: 15:54 [facility] 08/04 14:34 Order name: CBC with Diff; Complete Time: 15:31 [facility] 08/04 14:34 Order name: LFT's; Complete Time: 15:54 [facility] 08/04 14:34 Order name: Troponin HS; Complete Time: 15:54 [facility] 08/04 14:40 Order name: Glucose, Ancillary Testing; Complete Time: 15:12 EDMS 08/04 14:34 Order name: EKG; Complete Time: 14:34 [facility] 08/04 14:34 Order name: Cardiac monitoring; Complete Time: 15:23 [facility] 08/04 14:34 Order name: EKG - Nurse/Tech; Complete Time: 15:23 [facility] 08/04 14:34 Order name: IV Saline Lock; Complete Time: 15:23 [facility] 08/04 14:34 Order name: Labs collected and sent; Complete Time: 15:23 [facility] 08/04 16:36 Order name: Glucose, Ancillary Testing; Complete Time: 16:42 [facility] 08/04 14:34 Order name: O2 Per Protocol; Complete Time: 15:23 [facility] 08/04 14:34 Order name: O2 Sat Monitoring; Complete Time: 15:23 [facility] 08/04 16:15 Order name: Recheck Blood Sugar; Complete Time: 16:24 jh7 EC:08 Rate is 60 beats/min. Rhythm is regular. QRS [place] is Normal. [place] interval is normal at 7 166 msec. QRS interval is normal at 100 msec. QT interval is normal at 386 msec. No Q waves. T waves are Inverted in leads III, aVF. Clinical impression: Normal sinus rhythm. Administered Medications: 15:26 Drug: NS 0.9% 1000 ml Route: IV; Rate: 1 bolus; Site: left antecubital; mb9 16:52 Follow up: Response: No adverse reaction; IV Status: Completed infusion 9 16:03 Drug: Insulin Regular Human 5 units {Co-Signature: aa5 (Estela Harris RN).} Route: mb9 IVP; Site: left antecubital; 16:24 Follow up: Response: No adverse reaction mb9 Point of Care Testing: Blood Glucose: 14:27 Blood Glucose: 388 mg/dL; aa5 Ranges: Critical Glucose Levels:Adult <50 mg/dl or >400 mg/dl <40 mg/dl or >180 mg/dl Disposition: 18:13 Co-signature as Attending Physician, Venkata Baumann MD I reviewed the patient's care rn provided by the Advanced Practice Provider and agree with the diagnosis and treatment plan. Disposition Summary: 08/04/22 16:43 Discharge Ordered Location: Home [facility] Problem: new [facility] Symptoms: are unchanged [facility] Condition: Stable [facility] Diagnosis - Type 2 diabetes mellitus with hyperglycemia [facility] Followup: [facility] - With: Private Physician - When: 2 - 3 days - Reason: Recheck today's complaints Discharge Instructions: - Diabetes Mellitus and Nutrition, Adult aa5 - Discharge Summary Sheet [facility] - Type 2 Diabetes Mellitus, Diagnosis, Adult [facility] - Hyperglycemia [facility] Forms: - Medication Reconciliation Form [facility] - Work release form aa5 - Thank You Letter [facility] Signatures: Dispatcher [employer] Venkata Camilo MD MD rn Calderon, Audri, RN RN aa5 Naima Mccain CHUCKING MACHINE SET UP OPERATOR CHUCKING MACHINE SET UP OPERATOR 7 Iveth Overton RN RN mb9 Estela Harris RN aa5
[2022-08-04 17:11] VITALS: TEMP 97.5; O2SAT 100
[2022-08-04 17:12] VITALS: BP 127/72
== END 2022-08-04 17:07 | disposition home or self-care (01) ==
LOC: ER 13:50
DX: E11.65 Type 2 diabetes mellitus with hyperglycemia (principal); I10 Essential (primary) hypertension; F17.210 Nicotine dependence, cigarettes, uncomplicated
CPT/HCPCS: 36415; 80048; 80076; 82947; 84484; 85025; 93005; J1815; J7030